=== PATIENT | female | born 1990 | race African-American/Black ===

== ENCOUNTER 2022-04-18 09:36 | Outpatient (CLI) | payer OTHER, SELFPAY ==
[2022-04-18 10:08] VITALS: BP 106/70; PULSE 77
[2022-04-18 10:15] VITALS: BP 109/76; PULSE 79
[2022-04-18 10:18] LABS: Basophils Percent Auto 0.3 % (0.2-1.2); Eosinophils Percent Auto 0.4 % (0-4.4); Hematocrit 36.1 % (37.0-47.0); Hemoglobin 11.3 g/dL (12.0-15.0); Immature Granulocyte Absolute 0.07 K/mm3 (0.00-0.031); Immature Granulocyte Percent A 0.7 % (0-0.5); Lymphocytes Percent Auto 15.9 % (18.3-44.2); Mean Corpuscular HGB Conc 31.3 g/dl (32-36); Mean Corpuscular Hemoglobin 29.4 pg (26-34); Mean Corpuscular Volume 93.8 fl (80-100); Monocytes Absolute Auto 1.4 K/mm3 (0.1-0.6); Monocytes Percent Auto 14.5 % (2.6-8.5); Neutrophils Absolute Auto 6.4 K/mm3 (1.3-6.7); Neutrophils Percent Auto 68.2 % (45.5-73.1); Platelet Count Result 238 k/mm3 (150-375); Red Blood Count 3.85 M/mm3 (4.2-5.4); Red Cell Distribution Width 12.9 % (11.5-14.5); White Blood Count 9.4 K/mm3 (4.5-10.0)
[2022-04-18 10:22] LABS: Appearance Urine Slightly Cloudy (Clear); Bilirubin Urine Negative (Negative); Blood Urine 1+ (Negative); Color Urine Yellow (Yellow); Glucose Urine UA Negative (Negative); Ketones Urine Negative (Negative); Leukocyte Esterase Ur 3+ LEU/UL (NEGATIVE); Nitrate Urine Negative (Negative); Protein Urine Negative (Negative); Urobilinogen Urine 0.2 mg/dL (<2.0); pH Urine 6.5 (5.0-9.0)
[2022-04-18 10:25] LABS: Add Urine Microscopic? YES
[2022-04-18 10:29] LABS: Alanine Aminotransferase 12 U/L (6-35); Albumin Level 3.7 g/dL (3.5-5.1); Alkaline Phosphatase 174 U/L (38-126); Anion Gap 12 mmol/L (8-16); Aspartate Amino Transferase 26 U/L (14-36); Bilirubin,Total 0.2 mg/dL (0.2-1.3); Blood Urea Nitrogen 4 mg/dL (7-17); Calcium 8.3 mg/dL (8.4-10.2); Carbon Dioxide 20 mmol/L (22-30); Chloride 104 mmol/L (98-107); Estimated Glomerular Filt Rate > 60; Glucose 86 mg/dL (65-110); Potassium 3.9 mmol/L (3.4-5.0); Sodium 136 mmol/L (137-145); Uric Acid 4.8 mg/dL (2.5-7.5)
[2022-04-18 10:30] VITALS: BP 113/72; PULSE 72
[2022-04-18 10:31] LABS: Creatinine Urine 51.9 mg/dL; Total Protein Urine Random 20 mg/dL; Ur Ttl Prot Creatinine Ratio 0.39 mg/mg (0-0.20)
[2022-04-18 10:45] VITALS: BP 110/70; PULSE 75
--- NOTE | 2022-04-18 10:45 | PC.NURSE ---
Called Dr. Smita Quintero with lab results and BPs. Reactive tracing. December D/C home.
[2022-04-18 10:49] LABS: Bacteria Urine 3+ /hpf
[2022-04-18 10:50] LABS: Squamous Epithelial Cell Urine Few /hpf (Few)
== END 2022-04-18 10:57 | disposition home or self-care (01) ==
LOC: ANHOBOP 09:40 → ANHOBPP 09:41
PROVIDERS: Visit Provider Obstetrics & Gynecology
DX: O13.9 Gestational [pregnancy-induced] hypertension without significant proteinuria, unspecified trimester (principal); Z3A.00 Weeks of gestation of pregnancy not specified
CPT/HCPCS: 36415; 59025; 80053; 81001; 82570; 84156; 84550; 85025; 87077; 87086; 87186; 99199

== ENCOUNTER 2022-04-24 07:51 | Inpatient (IN) | payer OTHER, MEDICAID, SELFPAY ==
[2022-04-24] VITALS (41 sets, daily range): BP systolic 114–184; BP diastolic 72–156; PULSE 71–138; RESP 18; TEMP 36.2–36.9; O2SAT 99–100; BMI 34.8
--- NOTE | 2022-04-24 07:45 | PM.IMHP ---
H&P: HPI History of Present Illness Date/Time: 04/24/22 07:45 Chief Complaint: Induction of labor at term Narrative: this is a 32-year-old 2 para 1 whose last menstrual period was 07/26/2021, who presents at 39 weeks gestation for induction of labor. Her has been uncomplicated. She does take albuterol and Singulair but has not been hospitalized. She is negative for group B strep PMFSH Family History Family History Mother Hyperthyroidism Sibling Hyperthyroidism Social History Social History Substance use: never Spiritual care concerns: No Meds Home Medications and Allergies Home Medications Medication Instructions Recorded Confirmed Type albuterol 90 mcg/actuation aerosol 2 inhalation PRN Wheezing 04/13/22 History inhaler ferrous sulfate 325 mg (65 mg 325 mg PO DAILY 04/13/22 04/13/22 History iron) tablet prenat.vits,omar,kan-siak-kerwd 1 tablet PO DAILY 04/13/22 04/13/22 History Allergies Allergy/AdvReac Type Severity Reaction Status Date / Time No Known Allergies Allergy Unverified 11/23/16 13:37 Exam Const: General: cooperative, healthy appearing and comfortable Nutritional Appearance: average body habitus Orientation/consciousness: oriented to person, oriented to place and oriented to time Chest: Chest palpation & inspection: normal inspection of the chest Resp: Effort & Inspection: normal respiratory effort Cardio: Rate: regular rate Rhythm: regular rhythm Heart sounds: S1 normal heart sound present and S2 normal heart sound present GI: Inspection: normal to inspection : Speculum Exam - Vagina: normal appearance of the vagina Speculum Exam - Cervix: normal appearance of the cervix Bimanual exam- vagina & uterus: enlarged Assessment and Plan Assessment and plan (1) Term : Code(s): Z34.90 - Encounter for supervision of normal , unspecified, unspecified trimester Status: Acute Plan medical loss of labor. Spontaneous vaginal is expected. She is an epidural candidate
--- NOTE | 2022-04-24 07:51 | LDADM ---
This patient, Amie Singh, was admitted to Labor [facility] on 04/24/22 at 07:51. Plans for labor, pain management and were discussed with patient. Patient/family oriented to hospital policies and general routines including ID bracelet, bed and alarms, visiting hours, pain management, procedures, bathroom and other care routines, personal items, smoking policy, room service/diet and guest tray routines, security routines, and visiting hours. Patient/Family are encouraged to report perceived risks to care and to ask questions if they do not understand what they are told or what they should do. See OBIX for further documentation.
--- OUTSIDE RECORDS SUMMARY | 2022-04-24 07:56 | XMS_ITS ---
:1990 Author Care Team Providers Name Role Phone Lynn Hoff Primary Care Provider Unavailable Allergies Code Code System Name Reaction Severity Status Onset Grass Pollen Hives ? Active ? NKDA ? Medications Name Status Start Date Stop Date ? ? albuterol sulfate HFA 90 mcg/actuation aerosol inhaler Active ? Not available azithromycin 250 mg tablet Completed ? 11/16 Dulera 200 mcg-5 mcg/actuation HFA aerosol inhaler Active ? Not available Inhale 2 puffs twice a day by inhalation route as directed for 30 days. Flucelvax Quad 4397-4289 60 mcg (15 mcg x 4)/0.5 mL IM Completed ? 11/16/2018 suspension fluticasone 232 mcg-salmeterol 14 mcg/actuation breath activated powdr Active ? Not available Inhale 1 puff by mouth twice daily 08/30 (28) 1 mg-20 mcg (21)/75 mg (7) tablet Completed ? 11/16/2018 metronidazole 500 mg tablet Completed ? 03/2019 montelukast 10 mg tablet Active ? Not darell ilable Ortho Tri-Cyclen (28) 0.18 mg(7)/0.215 mg(7)/0.25 mg(7)-35 m cg tablet Completed ? 11/16/2018 Take 1 tablet every day by oral route. Ortho Tri-Cyclen LO (28) Unknown ? Not darell ilable Ortho Tri-Cyclen LO (28) 0.18 mg/0.215 mg/0.25 mg-25 mcg Complet ed ? 11/16/2018 tablet Qvar 80 mcg/actuation Metered Aerosol oral inhaler Completed ? 11/16/2018 Sprintec (28) 0.25 mg-35 mcg tablet Completed ? 11/16/2018 Problems Name Status Onset Date Source ? Asthma Active ? History Vaginal Discharge Active ? Encounter Procedures Date Name Performed by ? 04/19/2015 Screening Pap Sm
[2022-04-24 08:33] LABS: Basophils Percent Auto 0.3 % (0.2-1.2); Eosinophils Absolute Auto 0.1 K/mm3 (0-0.3); Eosinophils Percent Auto 0.4 % (0-4.4); Hemoglobin 13.1 g/dL (12.0-15.0); Immature Granulocyte Absolute 0.16 K/mm3 (0.00-0.031); Immature Granulocyte Percent A 1.2 % (0-0.5); Lymphocytes Percent Auto 15.2 % (18.3-44.2); Mean Corpuscular Hemoglobin 29.8 pg (26-34); Mean Corpuscular Volume 93.4 fl (80-100); Mean Platelet Volume 11.5 fl (7.4-10.4); Monocytes Absolute Auto 0.8 K/mm3 (0.1-0.6); Monocytes Percent Auto 5.8 % (2.6-8.5); Neutrophils Absolute Auto 10.1 K/mm3 (1.3-6.7); Neutrophils Percent Auto 77.1 % (45.5-73.1); Platelet Count Result 298 k/mm3 (150-375); Red Blood Count 4.39 M/mm3 (4.2-5.4); White Blood Count 13.2 K/mm3 (4.5-10.0)
[2022-04-24 08:56] LABS: Alanine Aminotransferase 19 U/L (6-35); Albumin Level 4.2 g/dL (3.5-5.1); Alkaline Phosphatase 213 U/L (38-126); Anion Gap 13 mmol/L (8-16); Aspartate Amino Transferase 31 U/L (14-36); Bilirubin,Total 0.4 mg/dL (0.2-1.3); Blood Urea Nitrogen 7 mg/dL (7-17); Calcium 9.1 mg/dL (8.4-10.2); Carbon Dioxide 19 mmol/L (22-30); Chloride 103 mmol/L (98-107); Estimated Glomerular Filt Rate > 60; Glucose 125 mg/dL (65-110); Potassium 3.7 mmol/L (3.4-5.0); Sodium 135 mmol/L (137-145)
[2022-04-24 08:58] LABS: Uric Acid 5.2 mg/dL (2.5-7.5)
[2022-04-24] MEDS: LACTATED RINGERS 1,000 ML 125 ML IV CONT (11:46)
[2022-04-24] MEDS: OXYTOCIN 30 UNITS/NS 500 ML 30 UNITS/500 ML BAG IV CONT (11:46)
[2022-04-24] MEDS: ONDANSETRON INJ 4 MG/2 ML VIAL IV PUSH (14:51)
--- NOTE | 2022-04-24 16:03 | PM.OBPRVD ---
OB - Delivery Note Procedure Delivery date: 04/24/22 Procedure: mil Induction method: AROM Delivery augmentation: Pitocin Delivery monitor: External FHT Route of delivery: Episiotomy description: None Laceration Description: None Specimen: No Quantitative Blood Loss (ml): 59 Anesthesia type: Epidural Disposition: Floor Baby Date of : 04/24/22 Weeks of gestation at delivery: 39 presentation: vertex position: Right Occiput Anterior Placenta delivery description: Spontaneous Cord Vessel Description: 3 Vessels and Delayed Cord Clamping score one minute: 8 score five minutes: 9
[2022-04-24] MEDS: OXYTOCIN 30 UNITS/NS 500 ML 30 UNITS/500 ML BAG 125 UNITS IV CONT (16:18)
--- NOTE | 2022-04-24 23:12 | OBPPTRN ---
Patient transferred to post room # 286 at 1902 via (W/C ). Support person present. Oriented to unit, room, information board, rooming in, admission packet and security measures. Patient verbalizes understanding.
[2022-04-25 01:42] VITALS: BP 124/95; PULSE 68; RESP 16; TEMP 36.9; O2SAT 100
[2022-04-25 04:45] VITALS: BP 133/91; PULSE 70; RESP 18; TEMP 36.9; O2SAT 100
[2022-04-25 07:35] LABS: Hematocrit 36.9 % (37.0-47.0); Hemoglobin 11.7 g/dL (12.0-15.0)
--- NOTE | 2022-04-25 07:41 | P.PNOB_ITS ---
OB - PN: Subj Subjective Date/time seen: 04/25/22 07:41 Patient comments: no complaints and pain well controlled baby status: doing well and nursing well OB - PN: Obj Data Labs CBC & Chem 7: 04/25/22 07:24 04/24/22 08:18 Labs: Laboratory Results - last 24 hr 04/24/22 04/24/22 04/24/22 08:18 08:18 08:18 WBC 13.2 H RBC 4.39 Hgb 13.1 Hct 41.0 MCV 93.4 MCH 29.8 MCHC 32.0 RDW 13.0 Plt Count 298 MPV 11.5 H Immature Gran % (Auto) 1.2 H Neut % (Auto) 77.1 H Lymph % (Auto) 15.2 L [place] % (Auto) 5.8 Eos % (Auto) 0.4 Baso % (Auto) 0.3 Lymph # (Auto) 2.00 [place] # (Auto) 0.8 H Eos # (Auto) 0.1 Baso # (Auto) 0.0 Abs Immat Gran (auto) 0.16 H Absolute Neuts (auto) 10.1 H Absolute Nucleated RBC 0.0 Nucleated RBC % 0.0 Sodium Potassium Chloride Carbon Dioxide Anion Gap BUN Creatinine Estim Creat Clear Calc Estimated GFR Glucose Uric Acid 5.2 Calcium Total Bilirubin AST ALT Alkaline Phosphatase Total Protein Albumin Blood Type O Positive Antibody Screen Negative 04/24/22 04/25/22 08:18 07:24 WBC RBC Hgb 11.7 L Hct 36.9 L MCV MCH MCHC RDW Plt Count MPV Immature Gran % (Auto) Neut % (Auto) Lymph % (Auto) [place] % (Auto) Eos % (Auto) Baso % (Auto) Lymph # (Auto) [place] # (Auto) Eos # (Auto) Baso # (Auto) Abs Immat Gran (auto) Absolute Neuts (auto) Absolute Nucleated RBC Nucleated RBC % Sodium 135 L Potassium 3.7 Chloride 103 Carbon Dioxide 19 L Anion Gap 13 BUN 7 Creatinine 0.60 L Estim Creat Clear Calc Not Reportable Estimated GFR > 60 Glucose 125 H Uric Acid Calcium 9.1 Total Bilirubin 0.4 AST 31 ALT 19 Alkaline Phosphatase 213 H Total Protein 8.0 Albumin 4.2 Blood Type Antibody Screen OB - PN A/P Plan day: 1 Plan: routine care Time Spent With Patient Time: Total time spent is greater than 50% in coordination of care (as documented) at patient's floor/unit and/or counseling patient: Time with patient: less than 15 minutes Exam Const: General: cooperative, healthy appearing and comfortable GI: Inspection: normal to inspection : Speculum Exam - Vagina: normal appearance of the vagina Speculum Exam - Cervix: normal appearance of the cervix Bimanual exam- vagina & uterus: enlarged
[2022-04-25 08:05] VITALS: BP 125/80; PULSE 66; RESP 16; TEMP 36.8; O2SAT 100
[2022-04-25] MEDS: DOCUSATE SODIUM 100 MG CAPSULE PO ×2 (08:06→16:46)
--- NOTE | 2022-04-25 11:46 | PM.DS ---
DS: Admitting Diagnosis Discharge Date 04/26/2022 Admitting Diagnosis term DS: Discharge Diagnosis Discharge Diagnosis (1) Term : Code(s): Z34.90 - Encounter for supervision of normal , unspecified, unspecified trimester Status: Acute DS: Summary Hospital Course Reason for hospitalization: active labor Hospital Course: patient was admitted active labor. She underwent spontaneous vaginal delivery without an epidural. Her 48hour course unremarkable. She remained afebrile. She was up, voiding without difficulty, ambulating, breast-feeding, generally without complaints. Time Spent with Patient Time attestation: Total time spent providing and/or coordinating discharge services: DS: Data Data Completed and Pending Labs on day of discharge: Labs from last 24 hours 04/25/22 07:24 Hgb 11.7 L Hct 36.9 L Discharge Plan Discharge Attending physician on discharge: Tonny Smiley Discharging Clinician: Tonny Smiley Patient Disposition: Home, Self-Care Activity: may shower, no straining and pelvic rest Diet: heart healthy Wound Care Instructions: follow printed instructions Patient Instructions: Antibiotic Form Stand Alone Forms: General Discharge Information Follow-up/Referrals: Tonny Smiley MD [Physician] - Discharge Medications: Continued albuterol 90 mcg/actuation Aerosol 2 mcg INHALATION PRN PRN (Reason: Wheezing) Rx Instructions: 2 puffs every 3-4 hours as needed ferrous sulfate 325 mg (65 mg iron) Tablet 325 mg PO DAILY #2 Tablet 1 tablet PO DAILY Date of admission: 04/24/22 07:51 Primary Care Provider: PHYSICIAN,STAFF COUNSELOR Admitting Provider: Tonny Smiley Attending physician on admission: Tonny Smiley Condition: Stable
[2022-04-25] MEDS: ACETAMINOPHEN 325 MG TABLET 650 MG PO (11:54)
[2022-04-25 12:07] VITALS: BP 123/80; PULSE 66; RESP 18; TEMP 36.3; O2SAT 100
--- NOTE | 2022-04-25 12:56 | PC.NURSE ---
[id number] Introductions were made, then consulted with patient to assess needs related to . Mother verbalizes she is able to independently latch infant with appropriate positioning/alignment. She denies any nipple discomfort and is responsively . Infant is currently meeting outcomes for weight, output, jaundice and feeding frequencies of 8-12 times in 24 hours. Mother declines any additional assistance/education at this time. Mother is encouraged to call for assistance if her doesn?t latch, there is discomfort with latching, and for a latch assessment. Mother voiced understanding of information shared and mom and baby guide reviewed for additional resource information.
[2022-04-25 15:55] LABS: Rapid Plasma Reagin Non-Reactive (NonReactive)
[2022-04-25 20:05] VITALS: BP 124/82; PULSE 73; RESP 18; TEMP 36.9; O2SAT 100
--- NOTE | 2022-04-26 06:51 | PM.OBPNVD ---
OB - PN: Subj Subjective Date/time seen: 04/26/22 06:51 Patient comments: no complaints and pain well controlled baby status: doing well and nursing well OB - PN: Obj Data Labs CBC & Chem 7: 04/25/22 07:24 04/24/22 08:18 Labs: Laboratory Results - last 24 hr 04/24/22 04/25/22 08:18 07:24 Hgb 11.7 L Hct 36.9 L RPR Non-reactive OB - PN A/P Plan day: 2 Plan: routine care, discharge home and follow up 6 weeks Time Spent With Patient Time: Total time spent is greater than 50% in coordination of care (as documented) at patient's floor/unit and/or counseling patient: Time with patient: less than 15 minutes
[2022-04-26 07:50] VITALS: BP 125/78; PULSE 72; RESP 16; TEMP 36.6; O2SAT 100
[2022-04-27 10:24] VITALS: BP 121/72; PULSE 76; RESP 20; TEMP 36.7; O2SAT 100
== END 2022-04-26 11:17 | disposition home or self-care (01) | DRG 807 ==
LOC: ANHLDR 07:54 → ANHOB2 21:29
PROVIDERS: Admitting Provider Obstetrics & Gynecology; Visit Provider Obstetrics & Gynecology
DX: O13.4 Gestational [pregnancy-induced] hypertension without significant proteinuria, complicating childbirth (principal); Z37.0 Single live birth; Z3A.39 39 weeks gestation of pregnancy
CPT/HCPCS: 36415; 80053; 84550; 85014; 85018; 85025; 86592; 86850; 86900; 86901; A9270; J2405; J2590; J7120

== ENCOUNTER 2024-07-31 17:34 | Emergency (ER) | payer OTHER, MEDICAID, SELFPAY ==
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
[2024-07-31 17:37] VITALS: BP 152/91; PULSE 78; RESP 19; TEMP 36.7; O2SAT 100
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
[2024-07-31] MEDS: KETOROLAC 10 MG TABLET PO (17:57)
[2024-07-31] MEDS: LIDOCAINE 5% PATCH 1 PATCH TRANSDERM (17:57)
[2024-07-31] MEDS: methocarbamoL 750 MG TABLET 1500 MG PO (17:58)
--- NOTE | 2024-07-31 18:54 | PC.NURSE ---
No injury to skin. No bruising or swelling. No deformities. Pt. has no limitation to ROM.
[2024-07-31 18:55] VITALS: BP 126/80; PULSE 76; RESP 16; O2SAT 99
== END 2024-07-31 18:58 | disposition home or self-care (01) ==
PROVIDERS: Emergency Provider Student in an Organized Health Care Education/Training Program
DX: S46.912A Strain of unspecified muscle, fascia and tendon at shoulder and upper arm level, left arm, initial encounter (principal); S16.1XXA Strain of muscle, fascia and tendon at neck level, initial encounter; J45.909 Unspecified asthma, uncomplicated; V43.52XA Car driver injured in collision with other type car in traffic accident, initial encounter
CPT/HCPCS: 73030; 73070; 99283; 99284; A9270

== ENCOUNTER 2024-08-13 14:30 | Emergency (ER) | payer OTHER, SELFPAY ==
--- NOTE | ~2024-08-13 | XR_ITS ---
XR hip LT 2V w AP pelvis Ordering provider: Bere Ramos PA-C History: . left posterior hip pain . Comparison: None. FINDINGS: BONES: No acute fracture or dislocation. HIP JOINT SPACES: Slight narrowing of both hip joints. SACROILIAC JOINT SPACES/LUMBAR SPINE: The sacroiliac joint spaces are normal. Normal visualized lower lumbar spine. PUBIC SYMPHYSIS: Normal. SOFT TISSUES: Normal. IMPRESSION: No acute osseous abnormality pelvis and left hip. Reviewed, dictated and finalized at location A. HERMAL OPERATIONS MANAGER
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
[2024-08-13 14:35] VITALS: BP 147/98; PULSE 74; RESP 18; TEMP 36.7; O2SAT 100
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
--- NOTE | 2024-08-13 17:13 | PC.NURSE ---
Pt. seen leaving prior to receiving d/c instructions.
== END 2024-08-13 17:17 | disposition home or self-care (01) ==
PROVIDERS: Emergency Provider Physician Assistant
DX: S16.1XXA Strain of muscle, fascia and tendon at neck level, initial encounter (principal); S29.012A Strain of muscle and tendon of back wall of thorax, initial encounter; S39.012A Strain of muscle, fascia and tendon of lower back, initial encounter; V43.52XA Car driver injured in collision with other type car in traffic accident, initial encounter
CPT/HCPCS: 70450; 72125; 72128; 72131; 73502; 99284